=== PATIENT | female | born 1960 | race Hispanic/Latino ===

== ENCOUNTER 2017-04-26 11:54 | Emergency (ER) | payer SELFPAY ==
[2017-04-26] MEDS ORDERED: KETOROLAC TROMETHAMINE 60 MG/2 ML VIAL ONE (13:15)
== END 2017-04-26 13:40 | disposition home or self-care (01) ==
LOC: EDH 11:54
DX: S62.522A Displaced fracture of distal phalanx of left thumb, initial encounter for closed fracture (principal); X58.XXXA Exposure to other specified factors, initial encounter; Y93.89 Activity, other specified; Y92.89 Other specified places as the place of occurrence of the external cause; Y99.8 Other external cause status
CPT/HCPCS: 29125; 73130; 96372; 99284; J1885

== ENCOUNTER 2018-07-08 11:00 | Emergency (ER) | payer OTHER | END 2018-07-08 11:39 | disposition home or self-care (01) | LOC: EDH 11:00 | DX: M25.571 Pain in right ankle and joints of right foot (principal); Z98.890 Other specified postprocedural states | CPT/HCPCS: 99281 ==

== ENCOUNTER 2021-09-01 13:12 | Emergency (ER) | payer OTHER ==
[~2021-09-01] VITALS: Ht 160 cm; Wt 89.8 kg
[~2021-09-01 13:12] MED LIST: CEPH500B PO; CYCL5TAB PO; IBUP-2070 PO; SULF1TAB42 PO
[2021-09-01 13:58] LABS: BASOPHILS % (AUTO) 0.5 % (0.0-5.0); EOSINOPHILS % (AUTO) 1.2 % (0.0-8.0); HEMATOCRIT 38.7 % (36-48); LYMPHOCYTES % (AUTO) 11.5 % (21.0-51.0); MEAN CORPUSCULAR HEMOGLOBIN 29.8 pg (27.0-33.0); MEAN CORPUSCULAR HGB CONC 33.1 g/dL (32.0-36.0); MEAN CORPUSCULAR VOLUME 90.2 fL (79-99); MONOCYTES % (AUTO) 12.5 % (3.0-13.0); NEUTROPHILS % (AUTO) 73.9 % (40.0-77.0); PLATELET COUNT (AUTO) 246 K/uL (130-400); RED BLOOD CELL COUNT(AUTO) 4.29 MIL/uL (4.00-5.50); RED CELL DISTRIBUTION WIDTH 13.2 % (11.0-15.5); WHITE BLOOD COUNT (AUTO) 12.8 K/uL (4.8-10.8)
[2021-09-01] MEDS ORDERED: SOLU-MEDROL 125MG VIAL IVP ONE (14:00)
[2021-09-01] MEDS ORDERED: KETOROLAC 30MG VIAL (30MG/ML) IVP ONE (14:00)
[2021-09-01 14:02] VITALS: BP 149/69
[2021-09-01] MEDS ORDERED: METH4TAB3 PO (14:02)
[2021-09-01] MEDS ORDERED: IBUP-2077 PO (14:02)
[2021-09-01 14:08] LABS: CREATININE 0.8 mg/dL (0.5-1.5); POTASSIUM 3.8 mmol/L (3.5-5.1)
[2021-09-01 14:13] LABS: ALBUMIN 3.3 g/dL (3.5-5.0); TOTAL PROTEIN, SERUM 7.5 g/dL (6.0-8.3)
[2021-09-01] MEDS ORDERED: DEXAMETHASONE SOD PHOSPHATE 4 MG/ML 1ML VIAL IVP ONE (14:30)
== END 2021-09-01 15:02 | disposition home or self-care (01) ==
LOC: EDH 13:12
DX: M10.9 Gout, unspecified (principal); Z79.1 Long term (current) use of non-steroidal anti-inflammatories (NSAID); Z79.52 Long term (current) use of systemic steroids
CPT/HCPCS: 99284; 96374; 96375; 80053; 85025; 36415; 73610; J1100; J1885

== ENCOUNTER 2021-12-21 13:51 | Emergency (ER) | payer OTHER ==
[~2021-12-21] VITALS: Ht 160 cm; Wt 81.6 kg
[~2021-12-21 13:51] MED LIST changes: +IBUP-2077 PO; +METH4TAB3 PO
[2021-12-21 13:56] VITALS: BP 138/84
[2021-12-21] MEDS ORDERED: KETOROLAC 30MG VIAL (30MG/ML) IM STA (15:05)
[2021-12-21] MEDS ORDERED: NAPR375T6 PO (15:25)
== END 2021-12-21 15:35 | disposition home or self-care (01) ==
LOC: EDH 13:51
DX: M72.2 Plantar fascial fibromatosis (principal); M10.9 Gout, unspecified; Z79.899 Other long term (current) drug therapy; Z98.890 Other specified postprocedural states
CPT/HCPCS: 99283; 96372; J1885

== ENCOUNTER 2022-12-15 13:00 | Emergency (ER) | payer OTHER ==
[~2022-12-15] VITALS: Ht 165.1 cm; Wt 99.8 kg
[~2022-12-15 13:00] MED LIST changes: +NAPR375T6 PO
[2022-12-15] MEDS ORDERED: NAPR-1180 PO (17:10)
[2022-12-15 17:32] VITALS: BP 155/92; PULSE 82; RESP 17; O2SAT 98
== END 2022-12-15 17:36 | disposition home or self-care (01) ==
LOC: EDH 13:00
DX: M79.671 Pain in right foot (principal); Z79.899 Other long term (current) drug therapy; Z98.890 Other specified postprocedural states
CPT/HCPCS: 73630